=== PATIENT | female | born 1950 | race Caucasian/White ===

== ENCOUNTER 2016-08-18 13:01 | Inpatient (IN) | payer MEDICARE, OTHER ==
[~2016-08-18] VITALS: Ht 154.9 cm; Wt 84.8 kg
[~2016-08-18 13:01] MED LIST: LEVAQUIN500 MG PO
[2016-08-18 14:11] LABS: HEMOGLOBIN 14.4 gm/dl (12.3-15.3); RED BLOOD COUNT 5.05 M/UL (4.00-5.10)
[2016-08-18 14:52] LABS: BUN/CREATININE RATIO 20 (0-10)
[2016-08-19 06:21] LABS: HEMOGLOBIN 13.9 gm/dl (12.3-15.3); RED BLOOD COUNT 4.85 M/UL (4.00-5.10); WHITE BLOOD COUNT 9.2 K/UL (4.5-11.0)
[2016-08-19 06:45] LABS: BUN/CREATININE RATIO 35 (0-10)
[2016-08-19] MEDS ORDERED: LOPRESSOR50 MG PO (09:02)
[2016-08-19] MEDS ORDERED: HYDROCHLOROTHIA25 MG PO (09:02)
[2016-08-19] MEDS ORDERED: BREO ELLIPTA 11 EACH INH (09:02)
[2016-08-19] MEDS ORDERED: SPIRIVA18 MCG INH (09:03)
[2016-08-20 04:40] LABS: BUN/CREATININE RATIO 32 (0-10)
[2016-08-21] MEDS ORDERED: LIPITOR TAB 2020 MG PO (10:20)
[2016-08-21] MEDS ORDERED: DIAMOX 250 MG250 MG PO (10:20)
[2016-08-21] MEDS ORDERED: DIABETA 2.5 MG2.5 MG PO (10:21)
[2016-08-21] MEDS ORDERED: GLUCOPHAGE 500500 MG PO (10:23)
[2016-08-21] MEDS ORDERED: COLACE 100MG C100 MG PO (10:35)
== END 2016-08-21 14:27 | disposition home or self-care (01) | DRG 189 ==
LOC: ER1 13:01 → ZEROF 16:00 → PROG CARE 16:00
PROVIDERS: Emergency Medicine; Family Medicine; ADMIT Hospitalist
DX: J96.22 Acute and chronic respiratory failure with hypercapnia (principal); J44.0 Chronic obstructive pulmonary disease with (acute) lower respiratory infection; J44.1 Chronic obstructive pulmonary disease with (acute) exacerbation; E87.2 Acidosis; E66.2 Morbid (severe) obesity with alveolar hypoventilation; J96.21 Acute and chronic respiratory failure with hypoxia; J20.9 Acute bronchitis, unspecified; I10 Essential (primary) hypertension; G47.33 Obstructive sleep apnea (adult) (pediatric); Z91.19 Patient's noncompliance with other medical treatment and regimen; I45.10 Unspecified right bundle-branch block; Z68.35 Body mass index [BMI] 35.0-35.9, adult; Z88.0 Allergy status to penicillin; Z87.891 Personal history of nicotine dependence; Z83.3 Family history of diabetes mellitus; Z82.49 Family history of ischemic heart disease and other diseases of the circulatory system; Z86.711 Personal history of pulmonary embolism; Z86.718 Personal history of other venous thrombosis and embolism; Z83.6 Family history of other diseases of the respiratory system; E78.5 Hyperlipidemia, unspecified; E11.9 Type 2 diabetes mellitus without complications
CPT/HCPCS: ECHO; 36415; 36600; 71010; 71020; 80048; 80053; 80061; 82550; 82553; 82803; 82962; 83036; 83874; 83880; 84484; 85025; 87040; 87070; 87205; 93005; 93306; 94640; 94660; 94664; 96374; 96375; 96376; 99285; J1644; J1956; J2920; J2930

== ENCOUNTER → 2016-08-30 | Outpatient (CLI) | payer MEDICARE, OTHER ==
[~2016-08-30] MED LIST changes: +BREO ELLIPTA 11 EACH INH; +COLACE 100MG C100 MG PO; +DIABETA 2.5 MG2.5 MG PO; +DIAMOX 250 MG250 MG PO; +GLUCOPHAGE 500500 MG PO; +HYDROCHLOROTHIA25 MG PO; +LIPITOR TAB 2020 MG PO; +LOPRESSOR50 MG PO; +SPIRIVA18 MCG INH
== END ==
LOC: CARD REHAB 09:30
DX: J44.9 Chronic obstructive pulmonary disease, unspecified (principal)

== ENCOUNTER → 2016-10-11 | Outpatient (CLI) | payer MEDICARE ==
[2016-10-11 12:20] LABS: BUN/CREATININE RATIO 16 (0-10)
== END ==
LOC: LAB 11:20
PROVIDERS: Internal Medicine Pulmonary Disease
DX: J96.10 Chronic respiratory failure, unspecified whether with hypoxia or hypercapnia (principal); E11.9 Type 2 diabetes mellitus without complications; I27.81 Cor pulmonale (chronic)
CPT/HCPCS: 36415; 36600; 80048; 82803; 83036